=== PATIENT | female | born 1965 | race Caucasian/White ===

== ENCOUNTER 2017-10-01 08:47 | Outpatient (CLI) | payer OTHER ==
--- NOTE | 2017-10-01 11:00 | MMO ---
BILATERAL SCREENING MAMMOGRAM: Date: 10/01/17 HISTORY: 52-year-old female. Routine screening mammography. COMPARISON: None. Baseline mammogram. TECHNIQUE: CC and MLO views of both breasts are submitted for interpretation. This patient's mammogram was reviewed with the assistance of computer-aided detection. FINDINGS: The breasts are composed of scattered fibroglandular tissue. In the right breast, no suspicious dominant mass, architectural distortion, or suspicious calcificati ons. In the left breast, there is a focal asymmetry in the inner upper quadrant. IMPRESSION: BIRADS 0: Incomplete: Need Additional Imaging Evaluation and/or Prior Mammograms for Comparison RECOMMENDATION: Spot view of the left breast in the CC and MLO projection, along with a mediolateral view. Ultrasound should be performed if focal asymmetry persists. The facility will notify patient of need for additional imaging services. POS: SLOAN
== END 2017-10-01 08:48 | disposition home or self-care (01) ==
LOC: SCSMAMMO 08:47
PROVIDERS: ATTEND Nurse Practitioner Family
DX: Z12.31 Encounter for screening mammogram for malignant neoplasm of breast (principal)
CPT/HCPCS: 77067

== ENCOUNTER 2017-10-08 13:21 | Outpatient (CLI) | payer OTHER | END 2017-10-08 13:22 | disposition home or self-care (01) | LOC: BICMAMMO 13:21 | PROVIDERS: ATTEND Nurse Practitioner Family | DX: N64.89 Other specified disorders of breast (principal) | CPT/HCPCS: G0279 ==

== ENCOUNTER 2018-10-10 12:19 | Outpatient (CLI) | payer OTHER ==
--- NOTE | 2018-10-10 14:11 | MMO ---
Bilateral MAMMO Bilat Screen DDI. CLINICAL HISTORY: Patient is 53 years old and is seen for screening. The patient has the following family history of breast cancer: paternal grandmother and paternal aunt. The patient has no personal history of cancer. VIEWS: The views performed were: bilateral craniocaudal and bilateral mediolateral oblique. FILMS COMPARED: The present examination has been compared to prior imaging studies performed at [facility] on 10/01/2017, and at [facility] on 10/08/2017. This study has been interpreted with the assistance of computer-aided detection. MAMMOGRAM FINDINGS: The breasts are heterogeneously dense, which could obscure a lesion on mammography. There are stable focal asymmetries seen in both breasts. There are no suspicious masses, suspicious calcifications, or new areas of architectural distortion. IMPRESSION: THERE IS NO MAMMOGRAPHIC EVIDENCE OF MALIGNANCY. A ROUTINE FOLLOW-UP MAMMOGRAM IN 1 YEAR IS RECOMMENDED. ACR BI-RADS Category 2 - Benign finding MAMMOGRAPHY NOTE: 1. A negative mammogram report should not delay a biopsy if a dominant of clinically suspicious mass is present. 2. Approximately 10% to 15% of breast cancers are not detected by mammography. 3. Adenosis and dense breasts may obscure an underlying neoplasm. Reported by: DEB JUSTIN MD Electonically Signed: [id number]
== END 2018-10-10 12:20 | disposition home or self-care (01) ==
LOC: SCSMAMMO 12:19
PROVIDERS: ATTEND Nurse Practitioner
DX: Z12.31 Encounter for screening mammogram for malignant neoplasm of breast (principal); Z80.3 Family history of malignant neoplasm of breast
CPT/HCPCS: 77067

== ENCOUNTER 2019-05-24 10:57 | Outpatient (CLI) | payer OTHER ==
--- NOTE | 2019-05-24 13:58 | ULT ---
TRANSABDOMINAL AND TRANSVAGINAL PELVIC ULTRASOUND: 05/24/19 INDICATION: History of postmenopausal bleeding. COMPARISON: None. TECHNIQUE: Coronado scale, color Doppler images were obtained of the pelvis via transabdominal and [facility]vaginal appr [facility]. FINDINGS: Uterus measures 10.7 x 5.3 x 6.5 cm. Endometrial stripe measures 6.6 mm. Within the left aspect of th e uterine body, there is an ill-defined hypoechoic mass measuring 4.2 x 3.6 x 5.1 cm. The adnexa were not seen. No free fluid is evident. IMPRESSION: 1. Poorly discerned hypoechoic mass in the left aspect of the uterine body. Differential conside rations include poorly demonstrated submucosal or intramural fibroid. Alternatively, focal adenomyosi s could have a similar appearance. Further evaluation with an MRI of the pelvis with and without cont rast is recommended. 2. Nonvisualization of the ovaries. Code T POS: TPC
== END 2019-05-24 10:58 | disposition home or self-care (01) ==
LOC: SCSULT 10:57
PROVIDERS: ATTEND Nurse Practitioner Family
DX: N95.0 Postmenopausal bleeding (principal); N85.8 Other specified noninflammatory disorders of uterus
CPT/HCPCS: 76856

== ENCOUNTER 2020-01-04 09:43 | Day surgery (SDC) | payer OTHER ==
[2020-01-01 11:23] LABS: Mean Corpuscular HGB CONC 33.3 g/dL (32.0-36.0); Mean Corpuscular Hemoglobin 31.2 pg (27.0-31.0); Mean Corpuscular Volume 93.9 fL (78.0-98.0); Mean Platelet Volume 8.1 fL (7.4-10.4); Platelet Count 443 thou/uL (130-400); RBC Distribution Width 11.4 % (11.5-14.5); Red Blood Cell (RBC) Count 4.15 mill/uL (4.20-5.40); White Blood Cell (WBC) Count 9.4 thou/uL (4.8-10.8)
[2020-01-01 16:16] LABS: SARS-CoV-2 MS2 Positive; SARS-CoV-2 N Gene Negative; SARS-CoV-2 S Gene Negative; SARS-CoV-2 by NAA Not Detected (NotDetected); SARS-CoV-2 orf1ab Negative
[2020-01-02 14:19] VITALS: BMI 28.8
--- NOTE | 2020-01-04 06:55 | HP ---
REASON FOR ADMISSION: Persistent postmenopausal bleeding, unresponsive to medical management. HISTORY OF PRESENT ILLNESS: Ms. Mcdowell is a 54-year-old, G4, P2, AB2, who has a history of abnormal uterine bleeding since early summer. Ultrasounds revealed relatively thin endometrium and biopsy revealed disordered proliferative endometrium. Attempts to control the bleeding with hormonal suppression have been unsuccessful. Decision was made to proceed with hysteroscopy, D and C. [employer] HISTORY: As noted, negative Pap smear. No history of dysplasia. PAST SURGICAL HISTORY: Positive for appendectomy. PAST MEDICAL HISTORY: Significant for hyperlipidemia. SOCIAL HISTORY: Denies tobacco, alcohol, or IV drug abuse. FAMILY HISTORY: Noncontributory. REVIEW OF SYSTEMS: Noncontributory. ALLERGIES: SHE HAS NO ALLERGIES. MEDICATIONS: Include: 1. Gemfibrozil. 2. Lovastatin. 3. Norethindrone. PHYSICAL EXAMINATION: GENERAL: White female, 5 feet 9, 199, BMI 29. Blood pressure 142/92, pulse 96, and respirations 18. HEENT: Within normal limits. LUNGS: Clear to auscultation bilaterally. HEART: Regular rate and rhythm. ABDOMEN: Soft and nontender. No rebound. No guarding. : Vulva without lesions. Vagina without discharge. Cervix, parous. Uterus, anteverted, 6- to 8-week size. Adnexa, no masses. EXTREMITIES: No clubbing, cyanosis, or edema. IMAGING STUDIES: Preoperative COVID testing negative. Ultrasound revealed normal appearing adnexa and uterus that appeared normal. No fibroid was noted despite one having been stated this present on a previous ultrasound performed at [place], appearance is consistent with possible mild adenomyosis. IMPRESSION: Persistent postmenopausal bleeding, unresponsive to conservative management with progestins. PLAN: D and C, hysteroscopy. The patient understands risks and benefits of procedure including bleeding, infection, perforation and damage to pelvic organs, and failure to cause cessation of postmenopausal bleeding. We will administer appropriate antibiotic and DVT prophylaxis. Job ID: [id number]
[2020-01-04] MEDS ORDERED: Fentanyl 100 MCG/2 ML VIAL ONE (11:24)
[2020-01-04] MEDS ORDERED: Lidocaine 1% PF 5 ML VIAL ONE (12:48)
[2020-01-04] MEDS ORDERED: Dexamethasone 20 MG/5 ML VIAL ONE (12:48)
[2020-01-04] MEDS ORDERED: Ondansetron PF 4 MG/2 ML Vial ONE (12:48)
[2020-01-04] MEDS ORDERED: PROPOFOL 200 MG/20 ML VIAL ONE (12:48)
[2020-01-04] MEDS ORDERED: Ketorolac Tromethamine 30 MG/ML VIAL ONE (12:48)
--- NOTE | 2020-01-04 17:24 | OP ---
DATE OF PROCEDURE: 01/04/2020 PREOPERATIVE DIAGNOSIS: Postmenopausal bleeding, unresponsive to medical management. POSTOPERATIVE DIAGNOSES: Postmenopausal bleeding, unresponsive to medical management plus endocavitary polyps. PROCEDURE PERFORMED: D and C, hysteroscopy. ANESTHESIA: General anesthesia with laryngeal mask airway. COMPLICATIONS: None. MEDICATIONS: 2 g Ancef. DVT prophylaxis with SCDs. ESTIMATED BLOOD LOSS: Less than 10 mL. OPERATIVE FINDINGS: 1. Pre and post sound 8 to 9 cm. 2. No evidence of perforation. 3. Hysteroscopic findings consistent with small intracavitary polyps removed with curettage. 4. Hemostasis at the end of the procedure with correct counts. DISPOSITION: Recovery room in good condition. DESCRIPTION OF PROCEDURE: After obtaining appropriate informed consent, the patient was taken to the operating room, where general laryngeal mask airway anesthesia was achieved without difficulty. She was prepped and draped in dorsal lithotomy. Bladder drained of clear urine with in and out catheterization. Sliding speculum placed in vagina. Cervix identified, grasped with single-toothed tenaculum at 12 o'clock. Uterus sounded to 9 cm, appropriately dilated up for hysteroscopy. The hysteroscope was introduced with a maximum distention pressure of 80 mmHg with normal saline as distention media. No evidence of perforation was noted. Bilateral tubal ostia noted. Good visualization of the entire cavity was noted with several areas that appear polypoid in nature. Hysteroscope was removed and sharp curetting was carried out. Gross appearance of polyps was noted coming through the os with curettage, and this was sent for pathologic analysis. Reintroduction of the hysteroscope revealed some persistent areas of polypoid appearance. It was removed and further curetting was carried out. After the second round of curetting, hysteroscopy confirmed a gritty texture of the entire endometrium consistent with complete removal of the endometrial linings and polyps. No evidence of perforation was noted. Total fluid used was approximately 1200 mL. Fluid balance was unable to be obtained due to malfunction of the recovery weighing equipment; however, no significant fluid loss was appreciated. Post sound was 8 to 9 cm. Tenaculum removed. Minimal bleeding noted from the anterior lip of the cervix. Speculum removed. The patient awakened and extubated to recovery room in good condition. Job ID: [id number]
== END 2020-01-04 13:55 | disposition home or self-care (01) ==
LOC: SDC 09:43
PROVIDERS: ATTEND Obstetrics & Gynecology
PROC: 0UDB8ZZ Extraction of Endometrium, Via Natural or Artificial Opening Endoscopic (ICD-10-PCS; principal; 2020-01-04)
DX: N84.0 Polyp of corpus uteri (principal); N95.0 Postmenopausal bleeding; E78.5 Hyperlipidemia, unspecified; J30.2 Other seasonal allergic rhinitis; Z79.899 Other long term (current) drug therapy; Z01.812 Encounter for preprocedural laboratory examination; Z20.828 Contact with and (suspected) exposure to other viral communicable diseases
CPT/HCPCS: 85027; 86850; 86900; 86901; 87635; 88305; J0690; J1100; J1885; J2405; J2704; J3010; U0003